=== PATIENT | female | born 1980 | race Caucasian/White ===

== ENCOUNTER 2017-05-13 09:24 | Observation (INO) | payer OTHER ==
[2017-04-30 11:52] VITALS: BMI 24.0
--- NOTE | 2017-05-12 21:48 | History and Physical ---
History & Physical Date May 12, 2017. Chief Complaint right ankle pain History of Present Illness The patient is a 36 year old female with complaints of chronic right lateral hindfoot pain after a procedure performed on the lateral calcaneus. She also has a persistent and worsening flat foot medially. 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 She is now being set up for revision of the calcaneal osteotomy and correction of the posterior tibial tendon dysfunction. Past Medical/Surgical History PMH: depression, acid reflux, kidney stones Past surgical hx: Right hand surgery x 2, right foot surgery. Social hx: 1 ppd smoker for 15 years. Allergies Coded Allergies: Metronidazole (Verified Allergy, Severe, METALLIC TASTE, SWELLING, 04/30/17) Home Medications Scheduled Buspirone Hcl (Buspirone Hcl), 30 MG PO BID Calcium Carbonate (Tums), 1-3 TAB PO PRN Drospirenone-Ethinyl Estradiol (Gianvi), 1 TAB PO HS Sertraline Hcl (Zoloft), 150 MG PO HS Scheduled PRN Albuterol Hfa (Ventolin Hfa), 2 PUFFS INH Q6H PRN for SOB/WHEEZING Physical Examination Skin: warm/dry, no rash, + pertinent finding (Healed surgical incisions right lateral hindfoot) Eyes: normal inspection ENT: normal ENT inspection Head: normocephalic, atraumatic Neck: supple, no adenopathy, trachea midline Respiratory/Chest: lungs clear, normal breath sounds, no respiratory distress Cardiovascular: regular rate, rhythm, no murmur Abdomen / GI: normal bowel sounds, non tender Extremities: + pertinent finding (Right ankle: Swelling at the lateral hindfoot and medial hindfoot. Tender along the PTT and the lateral calcaneus. Painful PROM right ankle. 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 All potential risks, benefits, complications, alternatives, and rehab have been discussed and she wishes to proceed. She will be scheduled for 05.13.17 with plan for ASA 81 mg BID x 6 wks for DVT prophylaxis.
[~2017-05-13] VITALS: Ht 165.1 cm; Wt 67.7 kg
[~2017-05-13 09:24] MED LIST: BUPIVACAINE 0.25% 30 ML VIAL ONE; BUSP30TA2 PO; CALC500C3 PO; CEFAZOLIN 2000MG IV PUSH 10 ML IV SCH; DROS1TAB21 PO; LACTATED RINGER'S 1000ML 1,000 ML IV SCH; ROPIVACAINE 0.5% 5 MG/ML 30 ML VIAL ONE; SERT1TAB68 PO; VNTHFA/IN INH
[2017-05-13] MEDS ORDERED: ATROPINE SULFATE 0.1 MG/ML 5ML SYR IV PRN (10:00)
[2017-05-13] MEDS ORDERED: ONDANSETRON INJ 2 MG/ML 2 ML VIAL IV PRN ×2 (10:00→15:15)
[2017-05-13] MEDS ORDERED: EpHEDrine SULFATE INJ 50 MG/ML AMP IV PRN (10:00)
[2017-05-13] MEDS ORDERED: FENTANYL CITRATE INJ 50 MCG/1 ML 2 ML VIAL IV PRN (10:00)
[2017-05-13] MEDS ORDERED: PROMETHAZINE HCL INJ 12.5 MG in SODIUM CHLORIDE 0.9% 50ML 50 ML IV PRN (10:00)
[2017-05-13] MEDS ORDERED: HYDROmorphone INJ 1 MG/ML SYR IV PRN (10:00)
[2017-05-13 10:10] VITALS: BP 108/76; PULSE 78; TEMP 36.7; O2SAT 98
[2017-05-13] MEDS ORDERED: FENTANYL CITRATE INJ 50 MCG/1 ML 2 ML VIAL ONE ×4 (10:39→15:07)
[2017-05-13] MEDS ORDERED: MIDAZOLAM HCL 1 MG/ML 2ML VIAL ONE (10:39)
--- NOTE | 2017-05-13 11:21 | History & Physical Bridge Note ---
H&P Re-Evaluation Bridge Note: I have examined the patient, reviewed the History & Physical and in the interval since the performance of the History & Physical I have noted the following changes of clinical significance: No changes noted
[2017-05-13] MEDS ORDERED: THROMBIN FOR SOLN 20000 UNIT KIT ONE (11:48)
[2017-05-13] MEDS ORDERED: GELATIN SPONGE SZ 100 ONE (11:48)
[2017-05-13] MEDS ORDERED: BACITRACIN 50000 UNIT VIAL ONE (11:48)
[2017-05-13] MEDS ORDERED: BUPIVACAINE/EPINEPHRINE 0.25% 1:200,000 30 ML VIAL ONE (11:48)
[2017-05-13] MEDS ORDERED: PROPOFOL IV EMULSION 10 MG/ML 20 ML VIAL IV ONE (12:27)
[2017-05-13] MEDS ORDERED: ONDANSETRON INJ 2 MG/ML 2 ML VIAL ONE (12:27)
[2017-05-13] MEDS ORDERED: LIDOCAINE HCL 2% 2 ML VIAL (20MG/ML) ONE (12:27)
[2017-05-13] MEDS ORDERED: DEXAMETHASONE SOD INJ 4 MG/ML VIAL ONE (12:27)
[2017-05-13] MEDS ORDERED: MoRPHine SULFATE 4 MG/ML 1 ML CARP\\VIAL ONE ×2 (12:30→16:25)
--- NOTE | 2017-05-13 14:45 | [facility] Post Operative Brief Note ---
Immediate Operative Summary Operative Date May 13, 2017. Pre-Operative Diagnosis Right nonunion lateral calcaneal osteotomy Broken hardware lateral calcaneus Right pes planovalgus deformity with posterior tibial tendon dysfunction Post-Operative Diagnosis Right nonunion lateral calcaneal osteotomy Broken hardware lateral calcaneus Right pes planovalgus deformity with posterior tibial tendon insuffiency Procedure(s) Performed 1. Open Reduction Internal Fixation Non Union of Lateral Calcaneus with Autograft 2. Right Foot Removal Broken Hardware From Lateral Calcaneus 3. Right Iliac Crest Bone Autograft [place] Surgeon Dr. Irene Boyce Consulting Utility Forester Surgeon(s) Partha Pollock PA-C Estimated Blood Loss 40 ML Findings See dict Specimens A. Explanted Hardware-Right Foot Drains None Anesthesia GLMA w/ popliteal and adductor canal block Complication(s) None Disposition Recovery Room / PACU
--- NOTE | 2017-05-13 14:58 | DIAGNOSTIC IMAGING REPORT ---
R FOOT 2 VIEWS HISTORY: 36 years-old Female RT HARDWARE REMOVAL/ORIF OF NON UNION FX status post hardware removal. COMPARISON: None available TECHNIQUE: 2 spot fluoroscopic images of the right foot were obtained utilizing 24.3 seconds fluoroscopy time. FINDINGS: Plate and screw fusion hardware is noted throughout the hindfoot within the mid calcaneus along with fusion of the subtalar joint. Cannulated screws are also seen within the base of the first metatarsal. IMPRESSION: Fluoroscopic assistance as above. Please see operative report for further details. The above report was generated using voice recognition software. It may contain grammatical, syntax or spelling errors. Electronically signed by: Cisco Ruiz M.D. 05/13/2017 2:57 PM Dictated Date/Time: 05/13/2017 2:46 PM
[2017-05-13] MEDS ORDERED: MAGNESIUM HYDROXIDE SUSP 30 ML UDC PO PRN (15:15)
[2017-05-13] MEDS ORDERED: CALCIUM CARBONATE 500 MG CHEWABLE PO PRN (15:15)
[2017-05-13] MEDS ORDERED: ZOLPIDEM TARTRATE 5 MG TAB PO PRN (15:15)
[2017-05-13] MEDS ORDERED: SOD PHOSPHATE/SOD BIPHOSPHATE ENEMA 132 ML BTL PR PRN (15:15)
[2017-05-13] MEDS ORDERED: BISACODYL 10 MG SUPP PR PRN (15:15)
[2017-05-13] MEDS ORDERED: ALUMINUM/MAGNESIUM/SIMETH (MAALOX MAX) 30 ML UDC PO PRN (15:15)
[2017-05-13] MEDS ORDERED: NO NSAIDS SCH (15:15)
[2017-05-13] MEDS ORDERED: ALBUTEROL HFA 8 GM INHALER INH PRN (15:15)
[2017-05-13] MEDS ORDERED: IV FLUIDS COMPLETED PRN (15:30)
--- NOTE | 2017-05-13 15:49 | DIAGNOSTIC IMAGING REPORT ---
R FOOT MIN 3 VIEWS ROUTINE CLINICAL HISTORY: Postoperative examination COMPARISON: None. DISCUSSION: 3 portable views are provided for interpretation. The fine bony detail is obscured by overlying plaster splint. There are postsurgical changes of a calcaneal reconstruction with multiple screws and plates. There are postsurgical changes of a first metatarsal osteotomy, bunionectomy. 2 screws are visualized the base the first metatarsal.. IMPRESSION: Postoperative changes as described above Electronically signed by: Chapito St M.D. 05/13/2017 3:47 PM Dictated Date/Time: 05/13/2017 3:46 PM
--- NOTE | 2017-05-13 16:01 | Anesthesiology Progress Note ---
Anesthesia Post Op Note Date & Time May 13, 2017 at 16:01 Vital Signs Pain Intensity: 0 Vital Signs Past 12 Hours Date Time Temp Pulse Resp B/P (MAP) Pulse Ox O2 Delivery O2 Flow Rate FiO2 05/13/17 15:50 81 12 115/72 97 Nasal Cannula 2 05/13/17 15:35 36.2 87 12 120/75 97 Nasal Cannula 2 05/13/17 15:25 89 12 122/81 96 Nasal Cannula 2 05/13/17 15:15 82 16 128/83 96 Oxymask 10 05/13/17 15:05 99 16 126/76 99 Oxymask 10 05/13/17 14:59 36.0 97 14 132/93 97 Oxymask 10 05/13/17 11:50 76 16 102/66 (78) 97 Oxymask 10 05/13/17 11:45 71 16 91/60 (70) 96 Oxymask 10 05/13/17 10:10 36.7 78 18 108/76 (87) 98 Room Air Notes Mental Status: alert / awake / arousable, participated in evaluation Pt Amnestic to Procedure: Yes Nausea / Vomiting: adequately controlled Pain: adequately controlled Airway Patency, RR, SpO2: stable & adequate BP & HR: stable & adequate Hydration State: stable & adequate Anesthetic Complications: no major complications apparent
[2017-05-13] MEDS: MoRPHine SULFATE 2 MG/ML CARP IV PRN ×2 (16:27→23:27)
--- NOTE | 2017-05-13 16:27 | OPERATIVE REPORT ---
DATE OF OPERATION: 05/13/2017 PREOPERATIVE DIAGNOSES: 1. Right lateral calcaneal nonunion. 2. Broken hardware x2 in the lateral calcaneus. 3. Posterior tibial insufficiency and posterior tibial tendonitis. POSTOPERATIVE DIAGNOSES: Same. PROCEDURES: 1. Right open reduction and internal fixation calcaneal nonunion with application of autograft and Synthes locking X-plate and a solid 4.0 cancellous screw. 2. Removal of broken hardware x2 teri lateral calcaneus. 3. Right iliac crest bone graft harvest. SURGEON: Dr. Esdras Boyce. COMMUTATOR REPAIRER: Partha Pollock PA-C, who was present for patient positioning, sterile prep and drape, management of retractors and instruments. He was present through the critical portions of the case including wound closure, application of sterile dressing and transport of the patient to recovery. ANESTHESIA: General LMA with popliteal and adductor canal blocks. SPECIMENS: Broken hardware. DRAINS: None. COMPLICATIONS: None. BLOOD LOSS: 40 mL PERTINENT HISTORY: This is a 36-year-old female who had a prior surgery by a e commerce architect in the [facility]. She had a hindfoot reconstruction with a double calcaneal osteotomy. The posterolateral heel osteotomy had gone through sufficient union; however, the lateral column lengthening had a nonunion, which was documented by radiographs and CT scans with continued persistent pain and difficulty with weightbearing or walking with also loss of fixation and broken hardware. It was felt that the patient would benefit from ORIF of her nonunion with a tricortical autograft as well as plate and screw fixation with removal of her broken painful hardware and also removal of her hardware in her posterolateral heel as the hardware became unnecessary as the heel slide osteotomy had healed appropriately. Also, a concern regarding possible posterior tibial insufficiency and posterior tibial tendonitis. The patient was scheduled for the surgery as indicated. All potential risks, benefits, complications, alternatives, rehab, potential for incomplete relief of symptoms, need for further surgery, DVT, PE, , persistent pain, swelling, scarring, weakness, neurovascular injury, wound complications, hardware failure, nonunion, malunion were discussed with the patient. The patient decided to proceed with the procedure as indicated. DESCRIPTION OF PROCEDURE: The patient was administered a popliteal block and an adductor canal block in the preop holding area and taken to the operative suite and placed supine on the operating room table. I reviewed the consent and identification of proper operative site, the patient was anesthetized, LMA was placed. Tourniquet was applied high on the right thigh over cast padding. Right lower extremity and right iliac crest region were both sterilely prepped and draped in usual fashion. Next, the right lower extremity was then elevated, and exsanguinated with an Esmarch bandage and tourniquet inflated to 350 mmHg. Next, a 15-blade scalpel was used to make an incision in the posterolateral aspect of the calcaneus. The incision was deepened through subcutaneous tissue. Meticulous hemostasis was achieved with electrocautery. Full thickness skin flaps were developed. Deep dissection was performed sharply down to the level of the plate and screws. Attempt was made to loosen the well-fixed plate and screws in the posterolateral aspect of the calcaneus. The screws would not release and multiple screw drivers were attempted. Therefore, this was abandoned as the hardware was well fixed in this location. This was irrigated with sterile normal saline and the dermis was closed using buried interrupted 3-0 Vicryl, skin was closed with 4-0 nylon. Next, a 15-blade scalpel was used to make an incision over the lateral column and lateral aspect of the calcaneus at the site of the previous incision. Incision was deepened through subcutaneous tissue. Meticulous hemostasis was achieved with electrocautery. Full thickness skin flaps were developed and careful dissection was performed sharply with a 15-blade scalpel down to the level of the peroneal tendon sheath. Next, a tenotomy scissor was then used to carefully dissect through the anterior margin over the previously placed bone teri. The sinus tarsi was entered and the peroneal tendon sheaths were then sharply elevated with a 15-blade scalpel and protected with Sandy retractors. The nonunion site was clearly identified and the nonunion was then pierced with a 15-blade scalpel demonstrating fibrous nonunion. Next, the broken teri were grasped with a surgical plier and then removed without excessive difficulty. Next, there was noted to be 2 broken times of each of the teri, which were left within the bone as they were buried and stable. Next, the nonunion site was then carefully debrided with a rongeur and a pituitary rongeur, removing any fibrous tissue. The nonunion and osteotomy was then opened with a lamina candle extrusion machine operator and of note, there was malrotation of the osteotomy dorsally. There was also noted to be impingement in the sinus tarsi due to malrotation of the distal fragment of the anterior process of the calcaneus. Next, after careful debridement of the fibrous tissue back to bleeding bone, a sagittal saw was then used to square the halves of the osteotomy for easy insertion of a tricortical graft. Next, this was copiously irrigated with sterile normal saline until clear. Next, attention was then directed toward the anterior process of the calcaneus and two 1.6-mm guide pins were placed into the distal aspect of the calcaneus to serve as a joystick to control rotation and alignment. Next, a lamina candle extrusion machine operator was inserted into the interspace and the foot was held in neutral dorsiflexion noting the angle between the talus and the first metatarsal, which was then corrected with approximately 8 mm tricortical graft size chosen. Next, the right iliac crest was then injected with 0.5% Marcaine plain with epinephrine followed by a 10-blade scalpel incision centered over the iliac crest. Incision was deepened through the subcutaneous tissue. Meticulous hemostasis was achieved with electrocautery. Full thickness skin flaps were developed. The fascia was then incised with electrocautery down to the level of the iliac crest. Next, Sandy retractors were placed over the inner and outer tables of the iliac crest and then an 8-mm tricortical trapezoidal graft was then resected using a sagittal saw. Next, this graft was then placed into the calcaneal osteotomy nonunion site and during this manipulation, the graft extruded and was then lost for use. Next, a second tricortical autograft was then harvested from the iliac crest. An 8 mm trapezoidal tricortical graft was harvested, which was then placed into the nonunion site and stabilized with a 4.0 cancellous fully threaded screw placed from distal to proximal, with live fluoroscopic assistance. This stabilized and compressed the nonunion site into anatomical alignment, neutralizing the first metatarsal talar angle in parallel. Next, the Synthes X locking plate was then affixed laterally with 2 provisional threaded pins under live fluoroscopic assistance followed by compression and stabilization with a locking 4-hole X-plate using multiple locking screws. This was confirmed under live fluoroscopic assistance. The wound was copiously irrigated with sterile normal saline and then cancellous bone graft harvested from the iliac crest, which was then packed in and around the tricortical graft. Next, the iliac crest harvest site was then irrigated with sterile normal saline followed by application of Gelfoam and thrombin into the void left by harvest of the iliac crest followed by closure of the fascia with #1 Vicryl. The dermis was then closed using buried 2-0 Vicryl, skin was closed using skin teri and then a sterile compressive dressing was applied after further injection with 0.5% Marcaine with epinephrine and 1 mL of Duramorph into the harvest site. Next, the extensor digitorum brevis and scar tissue was then closed using 2-0 Vicryl. The dermis was closed using buried interrupted 3-0 Vicryl, skin closed using 4-0 nylon. Consideration was made for the posterior tibial tendon advancement; however, the foot was held in an adequate neutral position. There was no significant insufficiency of the posterior tibial tendon site and no local inflammation suggested that the posterior tibial tendon was tendinopathic per physical exam. Decision was made to abandon the posterior tibial tendon advancement and the foot was then placed in neutral dorsiflexion. A sterile compressive dressing was applied followed by application of a bulky Lloyd Burger plaster splint in neutral dorsiflexion. The tourniquet was released, the patient was awakened and taken to recovery in stable condition. I attest to the content of the Intraoperative Record and any orders documented therein. Any exceptions are noted below. KRISTINE
[2017-05-13 16:40] VITALS: BP 100/69; PULSE 85; TEMP 36.5; O2SAT 94
[2017-05-13 17:00] VITALS: Ht 165.1 cm; Wt 67.7 kg
[2017-05-13] MEDS: OXYCODONE HCL IR 5 MG TAB (IMMEDIATE RELEASE) PO PRN ×2 (17:06→21:08)
[2017-05-13 17:10] VITALS: BP 96/60; PULSE 74; TEMP 36.5; O2SAT 92
[2017-05-13] MEDS: D5W AND 1/2NSS + 20MEQ KCL 1,000 ML IV SCH (17:36)
[2017-05-13 17:45] VITALS: BP 96/61; PULSE 68; TEMP 36.5; O2SAT 95
[2017-05-13 18:47] VITALS: BP 99/65; PULSE 75; O2SAT 95
[2017-05-13] MEDS: ACETAMINOPHEN 500 MG TAB PO SCH (19:22)
[2017-05-13] MEDS: CEFAZOLIN IV 1,000 MG in SYRINGE 0 ML IV SCH (20:52)
[2017-05-13] MEDS: BusPIRone 15 MG TAB PO SCH (20:52)
[2017-05-13] MEDS: DOCUSATE SODIUM 100 MG CAP PO SCH (20:52)
[2017-05-13] MEDS: SENNA 8.6 MG TAB PO SCH (20:53)
[2017-05-13] MEDS: SERTRALINE HCL 50 MG TAB PO SCH (20:53)
[2017-05-13] MEDS: ASPIRIN 81 MG ECTAB PO SCH (20:53)
[2017-05-13 22:55] VITALS: BP 93/68; PULSE 79; TEMP 36.5; O2SAT 96
[2017-05-14] MEDS: OXYCODONE HCL IR 5 MG TAB (IMMEDIATE RELEASE) PO PRN ×3 (00:55→17:34)
[2017-05-14] MEDS ORDERED: ACETAMINOPHEN IV 100 ML IV PRN (01:30)
[2017-05-14] MEDS: OXYCODONE HCL 10 MG TABCR (OXYCONTIN) PO SCH ×3 (01:47→22:39)
[2017-05-14] MEDS: HYDROmorphone INJ 1 MG/ML SYR IV PRN ×9 (01:48→21:03)
[2017-05-14 03:20] VITALS: BP 96/58; PULSE 69; TEMP 36.9; O2SAT 96
[2017-05-14] MEDS: CEFAZOLIN IV 1,000 MG in SYRINGE 0 ML IV SCH (03:27)
[2017-05-14] MEDS: D5W AND 1/2NSS + 20MEQ KCL 1,000 ML IV SCH ×3 (03:27→22:40)
[2017-05-14] MEDS: ACETAMINOPHEN 500 MG TAB PO SCH ×3 (05:36→21:04)
[2017-05-14 06:42] LABS: HEMATOCRIT 34.6 % (37-47); HEMOGLOBIN 11.9 g/dL (12.0-16.0); MEAN CELL VOLUME 91.8 fL (80-100); MEAN CORPUSCULAR HEMOGLOBIN 31.6 pg (25-34); MEAN CORPUSCULAR HGB CONC 34.4 g/dl (32-36); MEAN PLATELET VOLUME 9.8 fL (7.4-10.4); PLATELET COUNT 216 K/uL (130-400); RED CELL DISTRIBUTION WIDTH CV 12.4 % (11.5-14.5); WHITE BLOOD COUNT 11.86 K/uL (4.8-10.8)
[2017-05-14 07:13] LABS: CALCIUM 7.9 mg/dl (8.5-10.1); CREATININE 0.74 mg/dl (0.60-1.20); POTASSIUM 3.5 mmol/L (3.5-5.1)
--- NOTE | 2017-05-14 07:56 | Orthopedic Progress Note ---
Orthopedic Progress Note Date of Service May 14, 2017. Subjective Post OP Day: 1 Denies: chest pain, SOB, nausea / vomiting, light headedness, calf pain, pain controlled w PO medications (No control of the pain in the right pelvis. The right foot is still feeling numb.) Objective calves soft nontender, N/V intact, capillary refill less than 2 sec., A&O x3, toes mobile Right pelvis dressing is clean and dry. Tender around the dressing but area is soft. No evidence of hematoma. Date Time Temp Pulse Resp B/P (MAP) Pulse Ox O2 Delivery O2 Flow Rate FiO2 05/14/17 03:20 36.9 69 16 96/58 (71) 96 Room Air 05/13/17 23:15 Room Air 05/13/17 22:55 36.5 79 16 93/68 (76) 96 Room Air 05/13/17 18:47 75 16 99/65 (76) 95 Room Air 05/13/17 17:45 36.5 68 16 96/61 (73) 95 Nasal Cannula 2.0 05/13/17 17:10 36.5 74 16 96/60 (72) 92 Room Air 05/13/17 17:00 Room Air 05/13/17 17:00 Room Air 05/13/17 16:40 36.5 85 16 100/69 (79) 94 Room Air 05/13/17 16:20 81 14 109/68 97 Nasal Cannula 2 05/13/17 16:05 79 12 111/70 97 Nasal Cannula 2 05/13/17 15:50 81 12 115/72 97 Nasal Cannula 2 05/13/17 15:35 36.2 87 12 120/75 97 Nasal Cannula 2 05/13/17 15:25 89 12 122/81 96 Nasal Cannula 2 05/13/17 15:15 82 16 128/83 96 Oxymask 10 05/13/17 15:05 99 16 126/76 99 Oxymask 10 05/13/17 14:59 36.0 97 14 132/93 97 Oxymask 10 05/13/17 11:50 76 16 102/66 (78) 97 Oxymask 10 05/13/17 11:45 71 16 91/60 (70) 96 Oxymask 10 05/13/17 10:10 36.7 78 18 108/76 (87) 98 Room Air Laboratory Results 24 Hours: Test 05/14/17 06:07 Hematocrit 34.6 % Hemoglobin 11.9 g/dL Assessment & Plan Assessment: POD #1 1. Right open reduction and internal fixation calcaneal nonunion with application of autograft and Synthes locking X-plate and a solid 4.0 cancellous screw. 2. Removal of broken hardware x2 teri lateral calcaneus. 3. Right iliac crest bone graft harvest. Plan: Pain control. DVT prophylaxis--ASA 81 BID D/C planning--possibly later today if pain becomes controlled. If not, will plan for tomorrow. Inhouse Planning Pain Management: Oxycontin, Dilaudid, PO Tylenol, Oxy IR DVT Prophylaxis: TEDs, SCDs, ASA Discharge Planning Discharge Planning: home
[2017-05-14] MEDS ORDERED: ASPEC81 PO (07:57)
[2017-05-14] MEDS ORDERED: OXYC-57 PO (07:57)
[2017-05-14] MEDS ORDERED: PROM25TA9 PO (07:57)
--- NOTE | 2017-05-14 07:59 | Discharge Instructions ---
Discharge Instructions Date of Service May 14, 2017. Admission Reason for Admission: Right Foot Painful/Broken Hardware, Hallux [place]gus Discharge Discharge Diagnosis / Problem: right calcaneal nonunion, broken hardware Discharge Goals Goal(s): Decrease discomfort, Improve function Activity Recommendations Activity Limitations: per Instructions/Follow-up section Weightbearing Status: Right non-weightbearing . Instructions / Follow-Up Instructions / Follow-Up ACTIVITY RECOMMENDATIONS: Limitations: No weight bearing to affected limb at all times. SPECIAL CARE INSTRUCTIONS: * Some drainage onto the dressing is normal and is no cause for alarm. * Some swelling is natural especially after walking. * When resting, keep your foot elevated above the level of your heart. * Call [facility] if you notice: -Increased drainage -Fever over 101 degrees F -Severe constant pain BANDAGE: * Leave bandage/cast in place unless otherwise directed. * Keep bandage/cast dry at all times. FOLLOW UP VISIT WITH DR. GUTIERREZ If appointment is not already scheduled: Please call [facility] after you get home today to schedule a follow-up appointment for [address] Gutierrez at . Current Hospital Diet Patient's current hospital diet: Regular Diet Discharge Diet Recommended Diet: Regular Diet Procedures Procedures Performed: 1. Open Reduction Internal Fixation Non Union of Lateral Calcaneus with Autograft 2. Right Foot Removal Broken Hardware From Lateral Calcaneus 3. Right Iliac Crest Bone Autograft [place] Pending Studies Studies pending at discharge: no Medical Emergencies . Who to Call and When: Medical Emergencies: If at any time you feel your situation is an emergency, please call 911 immediately. . Non-Emergent Contact Non-Emergency issues call your: Surgeon Call Non-Emergent contact if: temperature is above 101, your pain is not controlled, your pain is worsening . "Provider Documentation" section prepared by Partha Pollock. . VTE Core Measure Inpt VTE Proph given/why not?: Other Anticoagulation (Aspirin), T.E.D. Stockings
[2017-05-14 08:02] VITALS: BP 96/60; PULSE 79; TEMP 36.9; O2SAT 99
[2017-05-14] MEDS: ASPIRIN 81 MG ECTAB PO SCH ×2 (08:53→21:03)
[2017-05-14] MEDS: MULTIVITAMIN TAB PO SCH (08:53)
[2017-05-14] MEDS: DOCUSATE SODIUM 100 MG CAP PO SCH ×2 (08:53→21:03)
[2017-05-14] MEDS: BusPIRone 15 MG TAB PO SCH ×2 (08:53→21:03)
[2017-05-14 09:08] VITALS: BP 91/54; PULSE 91; O2SAT 97
[2017-05-14 10:44] VITALS: BP 99/63; PULSE 75; TEMP 36.7; O2SAT 99
--- NOTE | 2017-05-14 10:54 | Anesthesiology Progress Note ---
Anesthesia Post Op Note Date & Time May 14, 2017 at 10:53 Vital Signs Vital Signs Past 12 Hours Date Time Temp Pulse Resp B/P (MAP) Pulse Ox O2 Delivery O2 Flow Rate FiO2 05/14/17 10:44 36.7 75 16 99/63 (75) 99 Room Air 05/14/17 08:02 36.9 79 16 96/60 (72) 99 Room Air 05/14/17 07:15 Room Air 05/14/17 03:20 36.9 69 16 96/58 (71) 96 Room Air 05/13/17 23:15 Room Air 05/13/17 22:55 36.5 79 16 93/68 (76) 96 Room Air Notes Mental Status: alert / awake / arousable, participated in evaluation Pt Amnestic to Procedure: Yes Nausea / Vomiting: adequately controlled Pain: adequately controlled Airway Patency, RR, SpO2: stable & adequate BP & HR: stable & adequate Hydration State: stable & adequate Anesthetic Complications: no major complications apparent
[2017-05-14 15:20] VITALS: BP 88/55; PULSE 95; TEMP 36.7; O2SAT 96
[2017-05-14] MEDS ORDERED: DROSPIRENONE-ETHINYL ESTRADIOL 1 TAB TAB PO SCH (21:00)
[2017-05-14] MEDS: SERTRALINE HCL 50 MG TAB PO SCH (21:03)
[2017-05-14] MEDS: SENNA 8.6 MG TAB PO SCH (21:03)
[2017-05-14 23:35] VITALS: BP 96/62; PULSE 74; TEMP 36.6; O2SAT 97
[2017-05-15] MEDS: HYDROmorphone INJ 1 MG/ML SYR IV PRN ×3 (00:11→05:08)
[2017-05-15] MEDS: ACETAMINOPHEN 500 MG TAB PO SCH (05:52)
[2017-05-15 06:40] LABS: HEMATOCRIT 35.5 % (37-47); HEMOGLOBIN 12.1 g/dL (12.0-16.0); MEAN CELL VOLUME 92.9 fL (80-100); MEAN CORPUSCULAR HEMOGLOBIN 31.7 pg (25-34); MEAN CORPUSCULAR HGB CONC 34.1 g/dl (32-36); MEAN PLATELET VOLUME 9.7 fL (7.4-10.4); PLATELET COUNT 209 K/uL (130-400); RED CELL DISTRIBUTION WIDTH CV 12.7 % (11.5-14.5); RED CELL DISTRIBUTION WIDTH SD 42.8 fL (36.4-46.3); WHITE BLOOD COUNT 11.29 K/uL (4.8-10.8)
[2017-05-15 07:12] LABS: CALCIUM 8.6 mg/dl (8.5-10.1); CREATININE 0.85 mg/dl (0.60-1.20); POTASSIUM 3.7 mmol/L (3.5-5.1)
[2017-05-15] MEDS: OXYCODONE HCL IR 5 MG TAB (IMMEDIATE RELEASE) PO PRN (07:41)
[2017-05-15 07:57] VITALS: BP 95/58; PULSE 100; TEMP 37; O2SAT 98
--- NOTE | 2017-05-15 08:13 | Orthopedic Progress Note ---
Orthopedic Progress Note Date of Service May 15, 2017. Subjective Post OP Day: 2 Reports: feeling well, Denies: chest pain, SOB, calf pain, pain controlled w PO medications (States Percocet never works for her and either does morphine. She used [place] previously for the foot pain. ) Objective N/V intact, splint C/D/I, capillary refill less than 2 sec., A&O x3, toes mobile The patient was lying comfortably in her bed while on her phone. However, upon entrance of the room, she put the phone down and stated the pain is a 10/10 and out of control. The patient's complaints seem to be worse than her exams suggests. Date Time Temp Pulse Resp B/P (MAP) Pulse Ox O2 Delivery O2 Flow Rate FiO2 05/15/17 07:57 37.0 100 16 95/58 (70) 98 Room Air 05/15/17 07:55 Room Air 05/15/17 00:18 Room Air 05/14/17 23:35 36.6 74 16 96/62 (73) 97 Room Air 05/14/17 15:20 Room Air 05/14/17 15:20 36.7 95 18 88/55 (66) 96 Room Air 05/14/17 10:44 36.7 75 16 99/63 (75) 99 Room Air 05/14/17 09:08 91 97 Laboratory Results 24 Hours: Test 05/15/17 06:09 Hematocrit 35.5 % Hemoglobin 12.1 g/dL Assessment & Plan Assessment: POD #2 1. Right open reduction and internal fixation calcaneal nonunion with application of autograft and Synthes locking X-plate and a solid 4.0 cancellous screw. 2. Removal of broken hardware x2 teri lateral calcaneus. 3. Right iliac crest bone graft harvest. Plan: Pain control. DVT prophylaxis--ASA 81 BID D/C planning--home after lunch today Inhouse Planning Pain Management: Oxycontin, [place], Dilaudid DVT Prophylaxis: TEDs, SCDs, ASA Discharge Planning Discharge Planning: home Pain Management: [place] DVT Prophylaxis: ASA
[2017-05-15] MEDS ORDERED: HYDR-5688 PO (08:15)
--- NOTE | 2017-05-15 08:19 | Discharge Summary ---
Orthopedic Discharge Summary Admission Date/Reason May 13, 2017 at 10:00 Right Foot Painful/Broken Hardware, Hallux Valgus. Discharge Date/Disposition May 15, 2017 Home Diagnosis Principal Diagnosis: right foot calcaneus nonunion Procedure(s) Performed 1. Open Reduction Internal Fixation Non Union of Lateral Calcaneus with Autograft 2. Right Foot Removal Broken Hardware From Lateral Calcaneus 3. Right Iliac Crest Bone Autograft [place] Medication Reconciliation New Medications: Hydrocodone/Acetaminophen 5MG/325MG ([place] 5MG/325MG) Tab 1-2 TABLETS PO Q4 PRN for Pain, #60 TAB Promethazine Hcl (Phenergan) 25 Mg Tab 25 MG PO Q6H PRN for Nausea, #20 TAB Aspirin (Aspirin EC Low Dose) 81 Mg Ectab 81 MG PO Q12 for 42 Days Continued Medications: Albuterol Hfa (Ventolin Hfa) 200 Puffs/73306 Mcg Aers 2 PUFFS INH Q6H PRN for SOB/WHEEZING Buspirone Hcl (Buspirone Hcl) 30 Mg Tab 30 MG PO BID Calcium Carbonate (Tums) 500 Mg Chew 1-3 TAB PO PRN Drospirenone-Ethinyl Estradiol (Gianvi) 1 Tab Tab 1 TAB PO HS Sertraline Hcl (Zoloft) 100 Mg Tab 150 MG PO HS, TAB Admission Physical Exam As per Admitting History & Physical. Hospital Course The patient was admitted on 1.17.18 for the above procedure. On POD #1, her pain wasn't controlled so she was kept another day for IV pain control. On POD # 2, her pain was better and improved with IV Dilaudid. She was maintaining NWB on the RLE. She was d/c'd home on POD #2. Discharge Instructions Please refer to the electronic Patient Visit Report (Discharge Instructions) for additional information.
[2017-05-15] MEDS: OXYCODONE HCL 10 MG TABCR (OXYCONTIN) PO SCH (08:31)
[2017-05-15] MEDS: HYDROCODONE/ACETAMOPHEN 5/325MG TAB PO PRN ×3 (08:51→17:54)
[2017-05-15] MEDS: D5W AND 1/2NSS + 20MEQ KCL 1,000 ML IV SCH (08:51)
[2017-05-15] MEDS: DOCUSATE SODIUM 100 MG CAP PO SCH (09:22)
[2017-05-15] MEDS: MULTIVITAMIN TAB PO SCH (09:22)
[2017-05-15] MEDS: BusPIRone 15 MG TAB PO SCH (09:22)
[2017-05-15 10:18] VITALS: BP 95/58; PULSE 100; TEMP 37; O2SAT 98
[2017-05-15] MEDS: ASPIRIN 81 MG ECTAB PO SCH (10:23)
[2017-05-15 15:09] VITALS: BP 96/60; PULSE 94; TEMP 37.1; O2SAT 96
== END 2017-05-15 20:12 | disposition home or self-care (01) ==
LOC: C.ACU 09:24 → C.MSW 10:00 → ENRESERV 16:09 → C.MSW 05-14 06:16
PROVIDERS: ADMIT Orthopaedic Surgery Sports Medicine; ATTEND Orthopaedic Surgery Sports Medicine
DX: T84.318A Breakdown (mechanical) of other bone devices, implants and grafts, initial encounter (principal); Y83.1 Surgical operation with implant of artificial internal device as the cause of abnormal reaction of the patient, or of later complication, without mention of misadventure at the time of the procedure; M21.41 Flat foot [pes planus] (acquired), right foot; M76.821 Posterior tibial tendinitis, right leg; F32.9 Major depressive disorder, single episode, unspecified; K21.9 Gastro-esophageal reflux disease without esophagitis; F17.200 Nicotine dependence, unspecified, uncomplicated; Z79.899 Other long term (current) drug therapy